=== PATIENT | female | born 2000 | race Two or more races ===

== ENCOUNTER → 2023-05-28 14:38 | Outpatient (CLI) | payer OTHER | END | disposition home or self-care (01) | LOC: PRENATAL 14:38 | PROVIDERS: ATTEND Obstetrics & Gynecology Maternal & Fetal Medicine | DX: O35.9XX0 Maternal care for (suspected) fetal abnormality and damage, unspecified, not applicable or unspecified (principal); O35.3XX0 Maternal care for (suspected) damage to fetus from viral disease in mother, not applicable or unspecified; O44.00 Complete placenta previa NOS or without hemorrhage, unspecified trimester; Z3A.19 19 weeks gestation of pregnancy ==

== ENCOUNTER 2023-10-01 16:02 | Outpatient (CLI) | payer OTHER ==
[~2023-10-01] VITALS: Ht 157.5 cm; Wt 66.2 kg
[~2023-10-01 16:02] MED LIST changes: -PRENATABS RX T1 EACH PO
[2023-10-01] MEDS ORDERED: RINGERS SOLUTION,LACTATED 1,000 ML IV SCH (16:30)
[2023-10-01] MEDS ORDERED: PRENATABS RX T1 EACH PO (16:31)
[2023-10-01 17:22] LABS: HEMATOCRIT 35.2 % (36.0-45.00); HEMOGLOBIN 11.8 g/dL (12.0-15.00); MEAN CELL VOLUME 87.2 fL (80.00-100.00); MEAN CORPUSCULAR HEMOGLOBIN 29.4 pg (27.00-32.0); MEAN CORPUSCULAR HGB CONC 33.7 g/dl (32.0-36.0); PLATELET COUNT 176 K/uL (150-450); RED BLOOD COUNT 4.03 M/uL (4.00-6.00); RED CELL DISTRIBUTION WIDTH 13.7 % (11.5-14.5)
[2023-10-01 17:25] LABS: PH,URINE 6.5 (5.0-8.0); URINE APPEARANCE Cloudy; URINE BILIRRUBIN Negative (NEGATIVE); URINE BLOOD Negative; URINE COLOR Yellow; URINE GLUCOSE Negative (NEGATIVE); URINE LEUKOCYTE Moderate; URINE NITRATE Negative; URINE PROTEIN Negative (NEGATIVE); URINE UROBILINOGEN 0.2 E.U./dl
[2023-10-01 17:28] LABS: URINE EPITHELIAL CELLS 188.6 uL (0.0-38.8); URINE WBC 249.2 uL (0.0-23.2)
[2023-10-01 17:38] LABS: URINE RBC 0.3 uL (0.0-20.8)
[2023-10-01 17:46] LABS: INR < 0.93; PARTIAL THROMBOPLASTIN TIME 28.2 SECONDS (22.0-34.0); PROTHROMBIN TIME 9.7 SECONDS (9.0-11.5)
== END 2023-10-02 10:05 | disposition home or self-care (01) ==
LOC: OBS/DEL 16:02
PROVIDERS: ATTEND Obstetrics & Gynecology
DX: O26.893 Other specified pregnancy related conditions, third trimester (principal); Z3A.37 37 weeks gestation of pregnancy; O26.849 Uterine size-date discrepancy, unspecified trimester; O36.8199 Decreased fetal movements, unspecified trimester, other fetus; W19.XXXA Unspecified fall, initial encounter

== ENCOUNTER → 2023-10-01 | Emergency (ER) | payer OTHER ==
[~2023-10-01] VITALS: Ht 157.5 cm; Wt 65.8 kg
[~2023-10-01] MED LIST: AMOXICILLIN500 MG PO; PRENATABS RX T1 EACH PO
== END | disposition home or self-care (01) ==
LOC: ER 12:43
DX: S30.0XXA Contusion of lower back and pelvis, initial encounter (principal); W18.30XA Fall on same level, unspecified, initial encounter; Y93.9 Activity, unspecified; Y92.9 Unspecified place or not applicable; Z33.1 Pregnant state, incidental

== ENCOUNTER 2023-10-18 04:55 | Inpatient (IN) | payer OTHER ==
[~2023-10-18] VITALS: Ht 157.5 cm; Wt 66.7 kg
[~2023-10-18 04:55] MED LIST changes: +PRENATABS RX T1 EACH PO
[2023-10-18] MEDS ORDERED: RINGERS SOLUTION,LACTATED 1,000 ML IV SCH (05:00)
[2023-10-18] MEDS ORDERED: AMPICILLIN SODIUM 2,000 MG VIAL IV NR (05:00)
[2023-10-18] MEDS ORDERED: MORPHINE SULFATE 4 MG/ML CARTRIDGE IV ONE (06:15)
[2023-10-18 06:33] LABS: PH,URINE 6.5 (5.0-8.0); URINE APPEARANCE Turbid; URINE BILIRRUBIN Negative (NEGATIVE); URINE BLOOD Negative; URINE COLOR Yellow; URINE GLUCOSE Negative (NEGATIVE); URINE LEUKOCYTE Trace; URINE NITRATE Negative; URINE PROTEIN 30 (NEGATIVE); URINE UROBILINOGEN 0.2 E.U./dl
[2023-10-18 06:36] LABS: HEMATOCRIT 34.1 % (36.0-45.00); HEMOGLOBIN 11.5 g/dL (12.0-15.00); MEAN CELL VOLUME 87.2 fL (80.00-100.00); MEAN CORPUSCULAR HEMOGLOBIN 29.5 pg (27.00-32.0); MEAN CORPUSCULAR HGB CONC 33.8 g/dl (32.0-36.0); PLATELET COUNT 144 K/uL (150-450); RED BLOOD COUNT 3.91 M/uL (4.00-6.00); RED CELL DISTRIBUTION WIDTH 13.5 % (11.5-14.5)
[2023-10-18 06:36] LABS: URINE BACTERIA 381.7 uL (0.0-1933); URINE EPITHELIAL CELLS 42.3 uL (0.0-38.8); URINE WBC 73.4 uL (0.0-23.2)
[2023-10-18 06:58] LABS: ALBUMIN 2.6 gm/dL (3.4-5.0); BILIRUBIN TOTAL 0.29 mg/dL (0.3-1.2); CALCIUM 8.5 mg/dL (8.5-10.1); CREATININE SERUM 0.5 mg/dL (0.55-1.02); GFR 157.29; GLOBULINA 3.3 G/DL (2.4-3.5); POTASSIUM 3.96 mEq/L (3.5-5.1); TOTAL PROTEIN 5.9 gm/dL (6.4-8.2)
[2023-10-18 07:27] LABS: INR < 0.93; PARTIAL THROMBOPLASTIN TIME 28.9 SECONDS (22.0-34.0); PROTHROMBIN TIME 9.5 SECONDS (9.0-11.5)
[2023-10-18 07:47] LABS: URINE CRYSTALS FEW /HPF
[2023-10-18] MEDS ORDERED: OXYTOCIN 500 ML IV SCH (08:15)
[2023-10-18] MEDS ORDERED: AMPICILLIN SODIUM 1,000 MG VIAL IV SCH (09:00)
[2023-10-18] MEDS ORDERED: MORPHINE SULFATE 4 MG/ML VIAL IV STA (09:59)
[2023-10-18] MEDS ORDERED: ERYTHROMYCIN BASE 1 GM TUBE OP ONE (13:15)
[2023-10-18] MEDS ORDERED: OXYTOCIN 20 UNITS/1000ML RL PIGGYBAG IV ONE (13:16)
[2023-10-18] MEDS ORDERED: CHLORHEXIDINE GLUCONATE 120 ML BOTTLE TOP ONE (13:16)
[2023-10-18] MEDS ORDERED: OXYTOCIN 10 UNITS/ML VIAL ONE (13:59)
[2023-10-18] MEDS ORDERED: LIDOCAINE HCL 1% 10ML VIAL ONE (15:32)
[2023-10-18] MEDS ORDERED: IBUprofen 400 MG TABLET PO PRN (17:15)
[2023-10-18] MEDS ORDERED: CHLORHEXIDINE GLUCONATE 120 ML BOTTLE TOP SCH (17:30)
[2023-10-18] MEDS ORDERED: ERYTHROMYCIN BASE 1 GM TUBE OP SCH (17:30)
[2023-10-18] MEDS ORDERED: OXYTOCIN 10 UNITS/ML VIAL IM STA (17:30)
[2023-10-18] MEDS ORDERED: LIDOCAINE HCL 1% 10ML VIAL IJ ONE (17:45)
[2023-10-18] MEDS ORDERED: OXYTOCIN 1,000 ML IV SCH (17:45)
[2023-10-18 21:22] LABS: HEMATOCRIT 29.6 % (36.0-45.00); HEMOGLOBIN 10.1 g/dL (12.0-15.00); MEAN CELL VOLUME 87.9 fL (80.00-100.00); MEAN CORPUSCULAR HGB CONC 34.2 g/dl (32.0-36.0); PLATELET COUNT 155 K/uL (150-450); RED BLOOD COUNT 3.37 M/uL (4.00-6.00); RED CELL DISTRIBUTION WIDTH 13.4 % (11.5-14.5)
[2023-10-18 22:51] LABS: ABG PH 7.368 (7.35-7.45); ABG PO2 40.4 mmHg (80-100); ABG pCO2 33.7 mmHg (35-45); BASE EXCESS -5.3 mmol/l; SaO2 72.7 %; o2 21 %
[2023-10-19] MEDS ORDERED: DOCUSATE SODIUM 100MG CAP PO SCH (09:00)
== END 2023-10-20 11:24 | disposition home or self-care (01) | DRG 807 ==
LOC: LDR 04:55 → OB/GYN 19:11
PROVIDERS: Obstetrics & Gynecology; ADMIT Obstetrics & Gynecology; ATTEND Obstetrics & Gynecology
PROC: 10E0XZZ Delivery of Products of Conception, External Approach (ICD-10-PCS; principal; 2023-10-18)
PROC: 0KQM0ZZ Repair Perineum Muscle, Open Approach (ICD-10-PCS; 2023-10-18)
PROC: 4A1HXCZ Monitoring of Products of Conception, Cardiac Rate, External Approach (ICD-10-PCS; 2023-10-18)
DX: O70.1 Second degree perineal laceration during delivery (principal); Z37.0 Single live birth; Z3A.39 39 weeks gestation of pregnancy; Z20.822 Contact with and (suspected) exposure to COVID-19